=== PATIENT | male | born 1960 | race Caucasian/White ===

== ENCOUNTER 2017-06-04 06:33 | Emergency (ER) | payer OTHER ==
[~2017-06-04] VITALS: Ht 188 cm; Wt 93.0 kg
--- NOTE | 2017-06-04 07:03 | EKG ---
[facility] [address] [place], [place] [address] Signed Normal sinus rhythm Normal ECG No previous ECGs available Confirmed by NICK FIORE MD [id number] on 06/04/2017 7:02:49 AM Electronically Signed By: NICK FIORE MD 06/04/17 0703 PATIENT NAME: BLAIR RIVAS Electrocardiogram DATE OF : 60 PHYSICIAN: NICK FIORE MD REPORT #: [id number] REPORT IS CONFIDENTIAL AND NOT TO BE RELEASED WITHOUT AUTHORIZATION
== END 2017-06-04 07:55 | disposition home or self-care (01) ==
LOC: ED 06:33
DX: R07.2 Precordial pain (principal); F17.200 Nicotine dependence, unspecified, uncomplicated; Z88.8 Allergy status to other drugs, medicaments and biological substances
CPT/HCPCS: 71010; 80053; 84484; 85025; 93005; 93010; 99284